=== PATIENT | female | born 2000 | race Caucasian/White ===

== ENCOUNTER 2022-01-21 20:02 | Emergency (ER) | payer BC ==
[~2022-01-21] VITALS: Ht 167.6 cm; Wt 59.0 kg
[2022-01-21 22:58] VITALS: BP 139/84
--- NOTE | 2022-01-21 22:59 | NUR ---
BIBS FOR C/O LLQ ABD PAIN SINCE 1830.+NAUSEA, -VOMITING, -DIARRHEA, LBM: TODAY, URINE SAMPLE OBTAINED .
--- NOTE | 2022-01-21 23:26 | NUR ---
US AT BEDSIDE
--- NOTE | 2022-01-21 23:26 | NUR ---
ELISA CooleyG STARTED BLOOD WORK COLLECTED
[2022-01-21 23:58] LABS: BILIRUBIN,URINE NEGATIVE (NEGATIVE); LEUKOCYTE ESTERASE ,URINE 1+ (NEGATIVE); NITRITE, URINE NEGATIVE (NEGATIVE); PROTEIN,URINE NEGATIVE (NEGATIVE); UGLUCOSE NEGATIVE (NEGATIVE); UROBILINOGEN,URINE 0.2 EU/dL (0.2)
[2022-01-22 00:09] LABS: COLOR,URINE STRAW (YELLOW)
[2022-01-22 00:14] LABS: BASOPHILS % (AUTO) 0.5 % (0.0-2.0); EOSINOPHILS % (AUTO) 0.7 % (0.0-6.0); HEMATOCRIT 41 % (33-45); HEMOGLOBIN 13.4 g/dL (11.5-14.8); LYMPHOCYTES # (AUTO) 2.6 K/uL (0.8-4.8); LYMPHOCYTES % (AUTO) 31.2 % (20.0-44.0); MEAN CORPUSCULAR HGB CONC 33 g/dl (31.0-36.0); MEAN CORPUSCULAR VOLUME 88 fL (82-100); MONOCYTES % (AUTO) 11.3 % (2.0-12.0); NEUTROPHILS # (AUTO) 4.7 K/uL (1.8-8.9); NEUTROPHILS % (AUTO) 56.3 % (43.0-81.0); PLATELET COUNT (AUTO) 335 K/uL (150-450); RED BLOOD CELL COUNT(AUTO) 4.63 MIL/uL (4.0-5.2); WHITE BLOOD COUNT (AUTO) 8.4 K/uL (4.3-11.0)
[2022-01-22 00:27] LABS: SQUAMOUS EPITHELIAL CELL,UR Moderate /HPF (None Seen)
[2022-01-22 00:29] LABS: RBC,URINE 0-2 /HPF (0-2)
[2022-01-22 00:31] LABS: CALCIUM, SERUM 8.6 mg/dL (8.5-10.1); CREATININE 0.9 mg/dL (0.6-1.3); POTASSIUM 3.3 mmol/L (3.5-5.1)
[2022-01-22 00:36] LABS: BACTERIA,URINE Few /HPF (None Seen)
[2022-01-22 00:37] LABS: YEAST,URINE None Seen /HPF (None Seen)
[2022-01-22] MEDS ORDERED: DOCU-141 PO (01:11)
[2022-01-22 01:30] LABS: ALBUMIN 3.7 g/dL (3.4-5.0); BILIRUBIN,DIRECT 0.1 mg/dL (0.0-0.2); BILIRUBIN,TOTAL 0.3 mg/dL (0.2-1.0); TOTAL PROTEIN, SERUM 7.4 g/dL (6.4-8.2)
== END 2022-01-22 01:23 | disposition home or self-care (01) ==
LOC: ER 20:06
DX: R10.30 Lower abdominal pain, unspecified (principal); K59.00 Constipation, unspecified; N83.201 Unspecified ovarian cyst, right side; R82.81 Pyuria
CPT/HCPCS: 36415; 76856-TC; 80048-TC; 80076-TC; 81001; 84703-TC; 85025-TC